=== PATIENT | female | born 1995 | race Caucasian/White ===

== ENCOUNTER → 2022-07-19 14:44 | Observation (INO) | END | disposition hospice, home (50) | LOC: 1NENULAB | PROVIDERS: ADMIT Student in an Organized Health Care Education/Training Program; ATTEND Student in an Organized Health Care Education/Training Program ==

== ENCOUNTER 2022-08-07 07:59 | Inpatient (IN) ==
[2022-08-07] MEDS ORDERED: Naloxone 0.4 MG/ML INJ IVP PRN (08:12)
[2022-08-07] MEDS ORDERED: Famotidine 20 MG/2 ML VIAL IVP PRN (08:12)
[2022-08-07] MEDS ORDERED: miSOPROStoL 25 MCG TABLET VG PRN (08:12)
[2022-08-07] MEDS ORDERED: Metoclopramide 10 MG/2 ML VIAL IVP PRN (08:12)
[2022-08-07] MEDS ORDERED: Azithromycin 500 MG in 0.9 % Sodium Chloride 250 ML IVPB PRN (08:12)
[2022-08-07] MEDS ORDERED: miSOPROStoL 25 MCG TABLET PO PRN (09:04)
[2022-08-07 09:07] LABS: Hemoglobin 11.2 g/dL (11.5-15.4); Red Cell Distribution Width 12.8 % (11.5-14.5)
[2022-08-07 09:08] LABS: Basophils % 0.4 %; Eosinophils # 0.2 K/mcL (0.0-0.6); Hematocrit 33.7 % (35.3-44.9); Immature Granulocytes % 0.8 % (0-4); Immature Platelets 23.3 % (1.1-6.1); Lymphocytes # 1.4 K/mcL (0.6-4.6); Lymphocytes % 13.5 %; Mean Corpuscular HGB Conc 33.2 g/dL (31.6-35.5); Mean Corpuscular Hemoglobin 27.9 pg (28.0-33.3); Mean Platelet Volume 13.1 fL (9.4-12.4); Monocytes # 0.7 K/mcL (0.0-1.3); Neutrophils # 7.9 K/mcL (1.6-8.9); Red Blood Count 4.01 M/mcL (3.82-4.97); Segmented Neutrophils % 76.3 %; White Blood Count 10.3 K/mcL (4.3-11.1)
[2022-08-07 09:19] LABS: Platelet Count 68 K/mcL (140-400)
[2022-08-07 10:18] LABS: Amphetamine Screen,Urine Negative ng/mL (Cutoff=1000); Barbiturate Screen,Urine Negative ng/mL (Cutoff=200); Benzodiazepines Screen,Urine Negative ng/mL (Cutoff=200); Cannabinoid Screen,Urine Negative ng/mL (Cutoff = 50); Cocaine Screen,Urine Negative ng/mL (Cutoff= 300); Opiate Screen,Urine Negative ng/mL (Cutoff=300); Phencyclidine Screen,Urine Negative ng/mL (Cutoff=25)
[2022-08-07] MEDS: Ringers Solution, Lactated 1,000 ML IVC SCH ×2 (10:29→15:07)
[2022-08-07] MEDS: *HR* Nalbuphine 10 MG/ML AMPUL IV PRN ×2 (10:56→14:08)
[2022-08-07] MEDS ORDERED: *HR* FentaNYL (PF) 100 MCG/2 ML VIAL IVP ONE (16:01)
[2022-08-07] MEDS ORDERED: Oxytocin 30 UNIT/503 ML BAG IVC ONE (18:07)
[2022-08-07] MEDS ORDERED: Oxytocin 30 UNIT/503 ML BAG IVC SCH (20:20)
[2022-08-07] MEDS ORDERED: Lanolin 7 G OINT...G. TP PRN (20:20)
[2022-08-07] MEDS ORDERED: Benzocaine/Menthol 56 GM AEROSOL SPRAY TP PRN (20:20)
[2022-08-07] MEDS ORDERED: Ondansetron ODT 4 MG TAB.RAPDIS SL PRN (20:20)
[2022-08-07] MEDS ORDERED: *HR* OxyCODONE Immed Rel 5 MG TABLET PO PRN (20:20)
[2022-08-07] MEDS: Ibuprofen 600 MG TABLET PO SCH (21:21)
[2022-08-08] MEDS: Acetaminophen 325 MG TABLET PO SCH ×2 (03:58→11:34)
[2022-08-08] MEDS: Ibuprofen 600 MG TABLET PO SCH ×2 (03:58→11:34)
[2022-08-08 04:56] LABS: Basophils % 0.2 %; Eosinophils % 0.8 %; Hemoglobin 9.7 g/dL (11.5-15.4); Immature Granulocytes % 0.5 % (0-4)
[2022-08-08 04:58] LABS: Eosinophils # 0.1 K/mcL (0.0-0.6); Hematocrit 29.1 % (35.3-44.9); Immature Platelets 23.3 % (1.1-6.1); Lymphocytes # 1.5 K/mcL (0.6-4.6); Lymphocytes % 11.3 %; Mean Corpuscular HGB Conc 33.3 g/dL (31.6-35.5); Mean Corpuscular Hemoglobin 28.1 pg (28.0-33.3); Mean Corpuscular Volume 84.3 fL (83.0-100.0); Mean Platelet Volume 13.7 fL (9.4-12.4); Monocytes # 0.9 K/mcL (0.0-1.3); Monocytes % 7.2 %; Neutrophils # 10.4 K/mcL (1.6-8.9); Red Blood Count 3.45 M/mcL (3.82-4.97); Red Cell Distribution Width 12.8 % (11.5-14.5)
[2022-08-08 05:02] LABS: Platelet Count 66 K/mcL (140-400)
[2022-08-08 07:10] VITALS: BP 104/67; PULSE 79; TEMP 98.2; O2SAT 98
[2022-08-08] MEDS ORDERED: Prenatal Vit/FA 1 EACH TABLET PO SCH (09:00)
== END 2022-08-08 17:25 | disposition home or self-care (01) | DRG 560 ==
LOC: 1NENULAB 07:59 → 1NENUOBS 20:16
PROVIDERS: ADMIT Obstetrics & Gynecology; ATTEND Obstetrics & Gynecology